=== PATIENT | female | born 1965 | race Caucasian/White ===

== ENCOUNTER 2019-05-25 05:55 | Day surgery (SDC) | payer OTHER, BC ==
[2019-05-25] MEDS ORDERED: PROPOFOL 40 ML (07:59)
[2019-05-25] MEDS ORDERED: DEXAMETHASONE 4 MG/ML 1 ML INJ (07:59)
[2019-05-25] MEDS ORDERED: PROPOFOL 20 ML (08:49)
== END 2019-05-25 10:43 | disposition home or self-care (01) ==
LOC: GIL 05:55
DX: Z12.11 Encounter for screening for malignant neoplasm of colon (principal); K64.8 Other hemorrhoids; D12.0 Benign neoplasm of cecum; K44.9 Diaphragmatic hernia without obstruction or gangrene; K21.9 Gastro-esophageal reflux disease without esophagitis
CPT/HCPCS: 43239; 88305